=== PATIENT | male | born 1990 | race Caucasian/White ===

== ENCOUNTER 2021-06-20 12:58 | Emergency (ER) | payer MEDICAID ==
[~2021-06-20] VITALS: Ht 180.3 cm; Wt 108.9 kg
[2021-06-20 13:00] VITALS: BP_SYST 168
[2021-06-20] MEDS ORDERED: cloNIDine HCL 0.1 MG TABLET PO ONE ×2 (14:30→15:30)
[2021-06-20] MEDS ORDERED: ACETAMINOPHEN 325 MG TABLET PO ONE (15:15)
[2021-06-20] MEDS ORDERED: [UNRECOGNIZED DRUG - CODE] PO (16:31)
[2021-06-20] MEDS ORDERED: AMLO10TA88 PO (16:31)
[2021-06-20 16:56] VITALS: BP_SYST 195
== END 2021-06-20 16:56 | disposition home or self-care (01) ==
LOC: SED 12:58
DX: I10 Essential (primary) hypertension (principal); F15.10 Other stimulant abuse, uncomplicated
CPT/HCPCS: 99285

== ENCOUNTER 2021-08-12 10:14 | Emergency (ER) | payer MEDICAID ==
[~2021-08-12] VITALS: Ht 180.3 cm; Wt 108.9 kg
[~2021-08-12 10:14] MED LIST: AMLO10TA88 PO; [UNRECOGNIZED DRUG - CODE] PO
[2021-08-12 10:24] VITALS: BP_SYST 180
[2021-08-12] MEDS ORDERED: cloNIDine HCL 0.1 MG TABLET PO ONE ×2 (10:45→11:45)
[2021-08-12 11:10] LABS: BASOPHILS # (AUTO) 0.1 K/uL (0.0-0.2); BASOPHILS % (AUTO) 0.8 % (0.0-2.0); EOSINOPHILS # (AUTO) 0.2 K/uL (0.0-0.4); HEMATOCRIT 46.3 % (36-54); HEMOGLOBIN 15.8 g/dL (14.0-18.0); LYMPHOCYTES # (AUTO) 1.7 K/uL (1.0-5.5); LYMPHOCYTES % (AUTO) 22.4 % (20.5-51.5); MEAN CORPUSCULAR HEMOGLOBIN 29 pg (27-31); MEAN CORPUSCULAR HGB CONC 34 % (32-36); MEAN CORPUSCULAR VOLUME 85 fL (79.0-98.0); MONOCYTES # (AUTO) 0.6 K/uL (0.0-1.0); MONOCYTES % (AUTO) 7.3 % (1.7-9.3); NEUTROPHILS # (AUTO) 5.3 K/uL (1.8-7.7); NEUTROPHILS % (AUTO) 67.5 % (40.0-70.0); PLATELET COUNT (AUTO) 253 K/uL (130-430); RED BLOOD CELL COUNT(AUTO) 5.46 MIL/uL (4.2-6.2); RED CELL DISTRIBUTION WIDTH 12.9 % (9.0-15.0); WHITE BLOOD COUNT (AUTO) 7.8 K/uL (4.8-10.8)
[2021-08-12 11:23] LABS: CALCIUM 8.7 mg/dL (8.4-11.0); CREATININE 1.06 mg/dL (0.55-1.30); POTASSIUM 3.8 mmol/L (3.5-5.1)
[2021-08-12 11:28] LABS: ALBUMIN 3.8 g/dL (3.4-4.8); TOTAL BILIRUBIN 0.3 mg/dL (0.0-1.0)
[2021-08-12 12:14] VITALS: BP_SYST 151
== END 2021-08-12 12:09 | disposition home or self-care (01) ==
LOC: SED 10:14
DX: I16.0 Hypertensive urgency (principal); Z79.899 Other long term (current) drug therapy
CPT/HCPCS: 36415; 71045; 80053; 84484; 85025; 93005; 99285